=== PATIENT | male | born 1950 | race Caucasian/White ===

== ENCOUNTER 2021-06-18 09:47 | Outpatient (CLI) | payer MEDICARE, OTHER, SELFPAY ==
[2021-06-18 10:23] LABS: Alanine Aminotransferase 21 U/L (4-50); Albumin Level 4.7 g/dL (3.5-5.1); Alkaline Phosphatase 59 U/L (38-126); Anion Gap 11 mmol/L (8-16); Aspartate Amino Transferase 22 U/L (17-59); Bilirubin,Total 0.6 mg/dL (0.2-1.3); Blood Urea Nitrogen 23 mg/dL (9-20); Calcium 9.1 mg/dL (8.4-10.2); Carbon Dioxide 23 mmol/L (22-30); Chloride 104 mmol/L (98-107); Cholesterol 152 mg/dL (0-200); Estimated Glomerular Filt Rate > 60; Glucose 117 mg/dL (65-110); HDL Direct 33 mg/dL; Potassium 4.2 mmol/L (3.4-5.0); Sodium 138 mmol/L (137-145); Triglycerides 178 mg/dL (<150)
[2021-06-18 10:24] LABS: Hemoglobin A1C 6.4 % (<5.7)
[2021-06-18 10:34] LABS: LDL Cholesterol Direct 87 mg/dL
== END 2021-06-18 09:48 | disposition home or self-care (01) ==
LOC: ANHLAB 09:51
PROVIDERS: PCP Family Medicine; Visit Provider Physician Assistant
DX: Z12.5 Encounter for screening for malignant neoplasm of prostate (principal); E11.9 Type 2 diabetes mellitus without complications; I10 Essential (primary) hypertension; E78.5 Hyperlipidemia, unspecified; Z00.00 Encounter for general adult medical examination without abnormal findings
CPT/HCPCS: 36415; 80053; 80061; 83036; 84153; G0103

== ENCOUNTER 2021-11-05 15:00 | Outpatient (RCR) | payer MEDICARE, OTHER, SELFPAY ==
--- NOTE | 2021-09-23 11:51 | STOPEVAL ---
SPEECH AND LANGUAGE EVALUATION Thank you for referring Radhames Saleem to [facility].? The patient is scheduled to be seen for therapy? 2x/week for 4 weeks. Please review, sign, date and return this plan of care NINO. I agree with and certify that the following plan of care is medically necessary. Referring Physician Date Attending Provider: Zach Chaudhary, MSerina Therapy Assessment Status Assessment Status Assessment Status Evaluation Outpatient Past Medical History Past Medical History Source of Past Medical History Patient/ Neurological History Hx Cerebrovascular Accident (CVA) Yes: CVA 09/12/21 [facility]: 09/12-09/15/21 Cardiovascular History Hx Cardiac Disorders Hypertension Respiratory History Hx Respiratory Disorders No Significant History Gastrointestinal History Hx Gastrointestinal Disorders No Significant History Genitourinary History Hx Genitourinary Disorders No Significant History Musculoskeletal History Hx Musculoskeletal Disorders No Significant History Hematological History Hx Hematological Disorders No Significant History Endocrine History Hx Diabetes Yes: Possible but not confirmed Evaluation Information Problem Diagnosis CVA Onset 09/12/21 Subjective Information Patient reports that he woke Query Text:As Reported By Patient/ up later on Tuesday morning Family and was behaving normally until about 9:00 when he was unable to stand safely and fell. immediately called 911 and patient was taken to [facility]. reported that patient was evaluated by Speech Therapy at that time and was told to continue with ST after discharge. Pain Assessment Timing of Pain Assessment Timing of Pain Assessment Assessment Self Report Self Report Pain Level 0 Pain Score Pain Score 0: Self Report Language Evaluation Auditory Comprehension Body Part Identification (% Accuracy (0- 100 100)) Object Identification (% Accuracy (0-100 100 )) Picture Identification (% Accuracy (0- 100 100)) Simple Yes/No Questions (% Accuracy (0- 100 100)) Moderate Yes/No Questions (% Accuracy (0 100 -100)) Complex Yes/No Questions (% Accuracy (0- 100 100)) Auditory Comprehension One-Step 100 Directives (% Accuracy (0-100)) Auditory Comprehension of Two-Step 100 Directives (% Accuracy (0-100)) Auditory Comprehension of Three-Step 100
--- NOTE | 2021-10-19 14:01 | OTOPEVAL ---
OCCUPATIONAL THERAPY EVALUATION REPORT AND DISCHARGE SUMMARY 10/19/21 Patient referred to outpatient OT s/p CVA which occurred 09/12/21. At this time he is functioning independently, at his baseline, with ADLs and functional transfers. He has intact and symmetrical strength and coordination. No further skilled OT indicated at this time. Thank you for this referral. Thank you for referring Radhames Saleem to [facility].? Please review, sign, date and return this D/C Note NINO. I agree with and certify that the following plan of care is medically necessary. Referring Physician Date Referring Provider: Baldomero Cool MD *OT Outpatient Evaluation Start: 10/19/21 13:33 Therapy Assessment Status Assessment Status Assessment Status Evaluation Outpatient Past Medical History Past Medical History Source of Past Medical History Patient Neurological History Hx Cerebrovascular Accident (CVA) Yes: CVA 09/12/21 [facility] 09/12- Cardiovascular History Hx Cardiac Disorders No Significant History Respiratory History Hx Respiratory Disorders No Significant History Gastrointestinal History Hx Gastrointestinal Disorders No Significant History Genitourinary History Hx Genitourinary Disorders No Significant History Musculoskeletal History Hx Musculoskeletal Disorders No Significant History Hematological History Hx Hematological Disorders No Significant History Endocrine History Hx Diabetes Yes: Possible but not confirmed HEENT History Hx HEENT Disorders No Significant History Integumentary History Hx Skin Disorders No Significant History Reproductive History Hx Reproductive Disorders No Significant History Psychosocial History Hx Psychiatric Disorders No Significant History Pain History History of Any Previous or Ongoing No Significant History Instance of Pain Anesthesia History Hx Anesthesia Reactions No Significant History Evaluation Information 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 He Family reports that since returning home from the hospital he has been independent with ADLs and reports no physical deficits. He has been seeing speech therapy. Prior Level of Function Activity Level (Last 3 Months) Occupation Retired Hand Dominance Right Activity of Daily Living Ability Independent Indoor/Home Mobility Independent Community Mobility Independent Stairs Ability Independent Cooking No Cleaning No
--- NOTE | 2021-10-21 14:36 | STOPEVAL ---
Thank you for referring Radhames Saleem to [facility].? The patient is scheduled to continue 2x/weekly for 4 additional weeks. Please review, sign, date and return this plan of care NINO. I agree with and certify that the following plan of care is medically necessary. Referring Physician Date Attending Provider: Zach Chaudhary, Tre Therapy Assessment Status Assessment Status Assessment Status Evaluation Outpatient Past Medical History Past Medical History Source of Past Medical History Patient Neurological History Hx Cerebrovascular Accident (CVA) Yes: CVA 09/12/21 [facility] 09/12- Pain Assessment Timing of Pain Assessment Timing of Pain Assessment Pre-Treatment Self Report Self Report Pain Level 0 Pain Score Pain Score 0: Self Report Language Evaluation Auditory Comprehension Complex Yes/No Questions (% Accuracy (0- 100 100)) Auditory Comprehension of Complex 100 Directives (% Accuracy (0-100)) Auditory Comprehension of Moderate 75 Paragraphs (% Accuracy (0-100)) Response Latency Mild Deficits Factors Limiting Auditory Comprehension Aphasia,Decreased Attention, Memory Deficits Overall Auditory Comprehension Ability Mild Deficits Additional Auditory Comprehension Still caught by two complex Comments spatial yes/no questions: Is your neck above your chin? and Do we read from right to left? that caught him on the initial evaluation. These were addressed during several sessions however they still caught him today. Ability to catch details in moderate paragraph increased from 40% on initial evaluation to 75% on current evaluation. Will address this more frequently next month. Dysarthria Evaluation Oral-Motor Assessment Lip Structure Asymmetrical Lip Color [place] Lip Moisture Moist Lip Protrusion Direction WNL,Rate WNL,Range Reduced,Rate Slow,Strength Reduced Lip Lateralization Direction WNL,Rate WNL,Rate Slow,Strength Reduced Lip Compression Direction WNL,Range WNL,Rate WNL,Rate Slow,Strength Reduced Lip Tone Reduced Right Lip Comments Patient reports only occasional loss of food within
--- NOTE | 2021-11-06 16:20 | STOPEVAL ---
Thank you for referring Radhames Saleem to [facility].? The patient is discharged from direct Speech Therapy with all goals achieved. Referring Physician Date Attending Provider: Zach ChaudharyTre Therapy Assessment Status Assessment Status Assessment Status Discharge - Pt Not Present Outpatient Past Medical History Past Medical History Source of Past Medical History Patient Neurological History Hx Cerebrovascular Accident (CVA) Yes: CVA 09/12/21 ST Clinical Summary Clinical Summary ST Clinical Summary This patient was seen for a Speech Evaluation and 13 treatment sessions focusing on improving oral motor strength and speech intelligibility. Patient exhibited excellent participation by attending all scheduled sessions and completing exercises and intelligibility tasks at home daily in between sessions. By time of discharge, patient exhibited significant improvement in speech intelligibility at the word, phrase, and sentences levels with occasional imprecise speech sounds at the conversational level, often self-correcting independently. He was discharged with all goals achieved and no further direct Speech Therapy indicated.
== END 2021-12-07 13:07 | disposition home or self-care (01) ==
LOC: ANHST 15:00
PROVIDERS: PCP Family Medicine; Visit Provider Family Medicine
DX: I63.412 Cerebral infarction due to embolism of left middle cerebral artery (principal); I69.322 Dysarthria following cerebral infarction
CPT/HCPCS: 92507; 92523; 92610; 97165

== ENCOUNTER 2022-02-27 16:47 | Emergency (ER) | payer MEDICARE, OTHER, SELFPAY ==
--- NOTE | 2022-02-27 16:50 | ED.SKABFB ---
HPI - Skin/Abscess/Foreign Bdy General Chief complaint: Skin/Abscess/Foreign Body Stated complaint: CHEMICAL MCCLOUD TO BOTH FEET Time Seen by Provider: 02/27/22 17:02 Source: patient and RN notes reviewed Mode of arrival: ambulatory Limitations: no limitations History of Present Illness HPI narrative: 21-year-old male presents with concern for bilateral mccloud to both dorsal feet. Reports today while filling his [employer] gas tank he spilled gasoline on his shoes and socks,, and then cut the grass. Reports when he finished and took off his shoes and socks he noticed a burning sensation, redness to the top of both feet. Reports he washed the skin, applied some Silvadene that he had leftover at home. He denies decreased range of motion, strength, sensation in the feet or digits MD complaint: other (burn) Related Data Home Medications Medication Instructions Recorded Confirmed apixaban 5 mg tablet (Eliquis) 5 mg PO BID 02/27/22 02/27/22 atorvastatin 40 mg tablet 40 mg PO DAILY 02/27/22 02/27/22 finasteride 5 mg tablet 5 mg PO DAILY 02/27/22 02/27/22 lisinopril 20 1 tablet PO DAILY 02/27/22 02/27/22 mg-hydrochlorothiazide 12.5 mg tablet metoprolol succinate 25 mg 25 mg PO DAILY 02/27/22 02/27/22 tablet,extended release 24 hr tamsulosin 0.4 mg capsule 0.4 mg PO DAILY 02/27/22 02/27/22 Allergies Allergy/AdvReac Type Severity Reaction Status Date / Time No Known Allergies Allergy Verified 02/27/22 16:56 Review of Systems Review of Systems: CONSTITUTIONAL: Denies malaise, chills, sweats, or fever. CARDIOVASCULAR: Denies chest pain, palpitations, or edema. RESPIRATORY: Denies cough or dyspnea. GASTROINTESTINAL: Denies abdominal pain, nausea, vomiting SKIN: Reports redness, mccloud to the top of both feet MUSCULOSKELETAL: Denies joint pain or myalgia. NEUROLOGIC: Denies headache. All systems reviewed & are unremarkable except as noted in HPI and below PMFSH Past Medical History Medical History Anxiety Benign hypertension Decreased breath sounds in middle field on right side of chest (~10/24/18) DJD (degenerative joint disease), multiple sites DVT prophylaxis Dyslipidemia History of kidney stones Hypercholesterolemia Hypertension Impacted cerumen of both ears Internal hemorrhoids noted in colonoscopy report 05/2017 Lower urinary tract symptoms (LUTS) Nephrolithiasis Pelvic fracture (~1955) Pre-diabetes Surgical History Surgical History History of total right hip replacement (~08/16/17) MD Aimee Hx of colonoscopy (~03/17/12) MD Ritu Family History Family History Father Carcinoma of colon Other Cerebrovascular accident Congestive heart failure Diabetes mellitus Hypertension Social History Social History (Updated 06/08/21 @ 14:02 by Cortney Tolbert [facility]) Smoking status: Never smoker Second hand tobacco smoke exposure: No Smoking end date: 08/01/02 Alcohol intake: current Substance use: never Substance use type: does not use Comments At time of signature, agree with nursing past medical, surgical, social and family history. There is no relevant family history pertinent to the presenting complaint Exam Narrative: GENERAL: Well-appearing, well-nourished, and in no acute distress. HEAD: Normocephalic, atraumatic. EYES: PERRLA, conjunctivae clear ENT: Mucous membranes moist. NECK: Supple. No lymphadenopathy CHEST: Clear to auscultation. No respiratory distress. HEART: Regular rate and rhythm. SKIN: Warm, dry. Dorsal feet, not including ankles or digits, bilaterally erythematous, with scattered small fluid-filled bulla, each less than 0.5 cm in diameter, less than 3 on each foot, NEURO: Alert and oriented x3. PSYCH: Normal mood and affect Course Course Emergency Course: Patient is aware
[2022-02-27 16:59] VITALS: BP 129/81; PULSE 54; RESP 16; TEMP 37.1; O2SAT 98
[2022-02-27] MEDS: SILVER SULFADIAZINE 1% CR 50 GM JAR (*BKC) 1 APPLIC TOPICAL (17:16)
== END 2022-02-27 17:29 | disposition home or self-care (01) ==
PROVIDERS: Emergency Provider Nurse Practitioner; PCP Family Medicine
DX: T25.622A Corrosion of second degree of left foot, initial encounter (principal); T25.621A Corrosion of second degree of right foot, initial encounter; T52.0X1A Toxic effect of petroleum products, accidental (unintentional), initial encounter; I10 Essential (primary) hypertension; E78.5 Hyperlipidemia, unspecified; E78.00 Pure hypercholesterolemia, unspecified; R73.03 Prediabetes; Z96.641 Presence of right artificial hip joint
CPT/HCPCS: 99213; A9270; G0463

== ENCOUNTER 2022-06-25 11:37 | Emergency (ER) | payer MEDICARE, OTHER, SELFPAY ==
--- NOTE | ~2022-06-25 | CT_ITS ---
EXAMINATION: CT soft tissue neck w con DATE: 06/25/2022 15:37 INDICATION: Neck swelling. Dysphagia. TECHNIQUE: Computed tomography (CT) of the neck was performed with 75 mL Omnipaque-350 intravenous co ntrast. Automated exposure control and iterative reconstruction technique were employed. The dose-kailash gth product was 666.21 mGy-cm. COMPARISON: None FINDINGS: Orbits are normal. The paranasal sinuses are clear. Visualized sinuses and mastoid aircells are well aerated. Submandibular and parotid glands are symmetric. Thyroid gland is unremarkable. The palatine tonsils are normal. Small calcifications within the otherwise normal lingual tonsils. There is thicke arelis of the epiglottis as well as the bilateral aryepiglottic folds, more prominent on the left. The airway remains patent. No subglottic narrowing. There is no retropharyngeal soft tissue swelling. Mil d bilateral likely reactive level 2 jugular chain lymphadenopathy with lymph nodes measuring up to 12 mm maximal short axis diameter on the right and 11 mm on the left. No masses or abnormal fluid colle ctions identified. Animal atherosclerotic plaque at the bilateral carotid bulbs with 0% stenosis by N ASCET criteria.. Superior mediastinum is unremarkable. Atherosclerotic coronary artery calcific locat ion. Thoracic aorta is normal in caliber with no dissection. The visualized portions of the upper lydia gs are clear. IMPRESSION: 1. Epiglottitis without significant airway narrowing. Dr. Dalton discussed these findings with Dr. Emilia Hyatt at 3:52 PM. Reviewed, dictated and finalized at location A. DREN'S AIDE IMPRESSION: 1. Epiglottitis without significant airway narrowing. Dr. Dalton discussed th fior findings with Dr. Emilia Hyatt at 3:52 PM.
--- NOTE | ~2022-06-25 | XR_ITS ---
EXAMINATION: XR chest 2V DATE: 06/25/2022 15:47 INDICATION: Shortness of breath and 3 days of cough TECHNIQUE: frontal and lateral views of the chest were obtained. COMPARISON: Chest radiograph dated 10/24/2018 FINDINGS: The lungs remain clear with no focal airspace opacities, pulmonary edema, pleural effusion or pneumot horax. The cardiomediastinal silhouette is normal. Mild thoracic kyphosis with mild to moderate spond ylosis. Chronic mild anterior wedging of a couple mid thoracic vertebral bodies. IMPRESSION: 1. No acute cardiopulmonary disease. Reviewed, dictated and finalized at location A. ET PRINTER
[2022-06-25 12:02] VITALS: BP 171/88; PULSE 72; RESP 16; TEMP 37.4; O2SAT 97
--- NOTE | 2022-06-25 13:30 | ED.GENADULT ---
HPI - General Adult General Chief complaint: Unspecified Stated complaint: chest congestion, sore throat, afib? Time Seen by Provider: 06/25/22 13:18 History of Present Illness HPI narrative: Patient is a 72-year-old male with a history of hypertension, hyperlipidemia, A. fib on Eliquis presenting with sore throat and difficulty swallowing. Patient states that for the last 2 days he has had a very sore throat and feels like his neck is swollen. States that he has had difficulty swallowing. He is unsure if its due to pain or if it feels like there is a blockage. His states that he was choking on green beans earlier today. Patient also complains of a cough and chest congestion. Denies fevers, headache, shortness of breath, difficulty breathing, chest pain, palpitations, numbness or weakness, abdominal pain, nausea or vomiting, diarrhea, leg swelling, dysuria. Related Data Home Medications Medication Instructions Recorded Confirmed apixaban 5 mg tablet (Eliquis) 5 mg PO BID 02/27/22 02/27/22 atorvastatin 40 mg tablet 40 mg PO DAILY 02/27/22 02/27/22 finasteride 5 mg tablet 5 mg PO DAILY 02/27/22 02/27/22 lisinopril 20 1 tablet PO DAILY 02/27/22 02/27/22 mg-hydrochlorothiazide 12.5 mg tablet metoprolol succinate 25 mg 25 mg PO DAILY 02/27/22 02/27/22 tablet,extended release 24 hr tamsulosin 0.4 mg capsule 0.4 mg PO DAILY 02/27/22 02/27/22 Allergies Allergy/AdvReac Type Severity Reaction Status Date / Time No Known Allergies Allergy Verified 06/25/22 12:06 Review of Systems Review of Systems: All systems reviewed & are unremarkable except as noted in HPI and below PMFSH Past Medical History Medical History Anxiety Benign hypertension Decreased breath sounds in middle field on right side of chest (~10/24/18) DJD (degenerative joint disease), multiple sites DVT prophylaxis Dyslipidemia History of kidney stones Hypercholesterolemia Hypertension Impacted cerumen of both ears Internal hemorrhoids noted in colonoscopy report 05/2017 Lower urinary tract symptoms (LUTS) Nephrolithiasis Pelvic fracture (~195) Pre-diabetes Surgical History Surgical History History of total right hip replacement (~08/16/17) MD Aimee Hx of colonoscopy (~03/17/12) MD Ritu Family History Family History Father Carcinoma of colon Other Cerebrovascular accident Congestive heart failure Diabetes mellitus Hypertension Social History Social History Smoking status: Never smoker Second hand tobacco smoke exposure: No Smoking end date: 08/01/02 Alcohol intake: current Substance use: never Substance use type: does not use Exam Narrative: GENERAL: Well-appearing, well-nourished, and in no acute distress. HEAD: Normocephalic, atraumatic. EYES: PERRLA and EOMI. ENT: Nares clear, no rhinorrhea or epistaxis. Mucous membranes moist. Difficult to fully visualize posterior pharynx, no obvious erythema or exudates NECK: Supple. Patient appears to have some swelling in the submandibular region, nontender, patient handling his secretions CHEST: Clear to auscultation. No respiratory distress. HEART: Regular rate and rhythm. No murmur heard. Normal peripheral pulses. ABDOMEN: Soft, nontender, nondistended, normal active bowel sounds. EXTREMITIES: Normal range of motion. No edema. SKIN: Warm, dry, no rash. NEURO: No focal deficits. Alert and oriented x3. PSYCH: Normal mood and affect. Course Vital Signs Vital signs: Vital Signs Temperature 99.4 F 06/25/22 12:02 Pulse Rate 72 06/25/22 12:02 Respiratory Rate 16 06/25/22 12:02 Blood Pressure 171/88 H 06/25/22 12:02 Pulse Oximetry 97 06/25/22 12:02 Temperature 99.4 F 06/25/22 12:02 Pulse Rate 67 06/25
[2022-06-25 14:14] LABS: Basophils Percent Auto 0.2 % (0.2-1.2); Eosinophils Absolute Auto 0.1 K/mm3 (0-0.3); Eosinophils Percent Auto 0.7 % (0-4.4); Hematocrit 46.3 % (42.0-52.0); Hemoglobin 15.6 g/dL (14.0-18.0); Immature Granulocyte Absolute 0.06 K/mm3 (0.00-0.031); Immature Granulocyte Percent A 0.4 % (0-0.5); Lymphocytes Absolute Auto 1.57 K/mm3 (0.9-3.2); Lymphocytes Percent Auto 11.4 % (18.3-44.2); Mean Corpuscular HGB Conc 33.7 g/dl (32-36); Mean Corpuscular Hemoglobin 29.9 pg (26-34); Mean Corpuscular Volume 88.7 fl (80-100); Mean Platelet Volume 10.5 fl (7.4-10.4); Monocytes Absolute Auto 1.6 K/mm3 (0.1-0.6); Monocytes Percent Auto 11.7 % (2.6-8.5); Neutrophils Absolute Auto 10.4 K/mm3 (1.3-6.7); Neutrophils Percent Auto 75.6 % (45.5-73.1); Platelet Count Result 215 k/mm3 (150-375); Red Blood Count 5.22 M/mm3 (4.6-6.20); Red Cell Distribution Width 12.8 % (11.5-14.5); White Blood Count 13.8 K/mm3 (4.5-10.0)
[2022-06-25] MEDS: SODIUM CHLORIDE 0.9% IV 1,000 ML 999 ML IV CONT (14:43)
[2022-06-25] MEDS: KETOROLAC 15 MG/ML VIAL (*BKC) IV PUSH (14:44)
[2022-06-25 14:47] LABS: Influenza A QL RT-PCR Negative (Negative); Influenza B QL RT-PCR Negative (Negative); RSV RNA, RT-PCR Negative (Negative); SARS-CoV-2 RNA PCR Negative
[2022-06-25 14:54] LABS: Strep Group A RT-PCR Not Detected (Negative)
[2022-06-25 15:25] LABS: Alanine Aminotransferase 24 U/L (6-50); Albumin Level 4.6 g/dL (3.5-5.1); Alkaline Phosphatase 88 U/L (38-126); Anion Gap 12 mmol/L (8-16); Aspartate Amino Transferase 21 U/L (17-59); Bilirubin,Total 1.1 mg/dL (0.2-1.3); Blood Urea Nitrogen 12 mg/dL (9-20); Calcium 9.1 mg/dL (8.4-10.2); Carbon Dioxide 20 mmol/L (22-30); Chloride 104 mmol/L (98-107); Estimated CRCL calculation 113 ml/min; Estimated Glomerular Filt Rate > 60; Glucose 155 mg/dL (65-110); Potassium 4.2 mmol/L (3.4-5.0); Sodium 136 mmol/L (137-145)
[2022-06-25 15:32] LABS: Estimated CRCL calculation 98 ml/min; Estimated Glomerular Filt Rate > 60
[2022-06-25 17:00] VITALS: BP 142/79; PULSE 68; RESP 16; O2SAT 95
[2022-06-25] MEDS: cefTRIAXone 2 GM in SODIUM CHLORIDE 0.9% IV 100 ML 200 ML IVPB (17:03)
[2022-06-25 18:00] VITALS: BP 151/97; PULSE 67; RESP 17; O2SAT 94
[2022-06-25 19:05] VITALS: BP 132/80; PULSE 66; RESP 14; O2SAT 93
[2022-06-25 20:13] VITALS: BP 136/89; PULSE 66; O2SAT 92
[2022-06-25 21:53] VITALS: BP 132/87; PULSE 67; O2SAT 94
--- NOTE | 2022-06-25 21:53 | PC.NURSE ---
[facility] here to transport patient to [facility]. Patient transferred with his chart and belongings.
== END 2022-06-25 21:54 | disposition short-term general hospital (02) ==
PROVIDERS: Emergency Provider Emergency Medicine; PCP Family Medicine
DX: J05.10 Acute epiglottitis without obstruction (principal); Z20.822 Contact with and (suspected) exposure to COVID-19; I48.91 Unspecified atrial fibrillation; I10 Essential (primary) hypertension; E78.5 Hyperlipidemia, unspecified; R73.03 Prediabetes; Z87.442 Personal history of urinary calculi; Z96.641 Presence of right artificial hip joint; Z87.891 Personal history of nicotine dependence; Z79.01 Long term (current) use of anticoagulants
CPT/HCPCS: 36415; 70491; 71046; 80053; 85025; 87637; 87651; 96361; 96365; 96375; 99285; J0696; J1100; J1885; J7030; Q9967

== ENCOUNTER 2022-09-15 08:01 | Emergency (ER) | payer MEDICARE, OTHER, SELFPAY ==
--- NOTE | 2022-09-15 08:12 | ED.URI ---
HPI - URI/Sore Throat General Chief Complaint: Upper Respiratory Infection Stated Complaint: sore throat, fever,high bp, difficulty swallowing Time Seen by Provider: 09/15/22 08:12 Source: patient, family, RN notes reviewed and old records reviewed Mode of arrival: ambulatory Limitations: no limitations History of Present Illness HPI Narrative: 72-year-old gentleman accompanied by [facility] to [facility] with complaints of sore throat, difficulty swallowing, lymph nod swelling in neck since Tuesday with symptoms progressing. Patient reports painful swallowing denies any difficulty with his breathing with respirations even and nonlabored with no tachypnea and SAO2 98% on room air. Patient had stroke in September of 2021 with some residual right sided weakness but has full mobility of right side with gait slow and steady. Patient and report incidence of epiglottis in June of 2022 with treatment at [facility] of steroids and antibiotics after being transferred from [place] [facility] ED. Patient displays no trismus, is able to control oral secretions, reports that he has been febrile with temperature up to 102F yesterday. Patient has been taking Tylenol and also some Mucinex DM. MD elicited complaint: sore throat Pertinent past history: other (afib, CVA) Onset (ago): day(s) (3) Pain scale (0-10): 4 Treatments prior to arrival: acetaminophen and other (Mucinex DM) Related Data Home Medications Medication Instructions Recorded Confirmed apixaban 5 mg tablet (Eliquis) 5 mg PO BID 02/27/22 09/15/22 atorvastatin 40 mg tablet 40 mg PO DAILY 02/27/22 09/15/22 finasteride 5 mg tablet 5 mg PO DAILY 02/27/22 09/15/22 lisinopril 20 1 tablet PO DAILY 02/27/22 09/15/22 mg-hydrochlorothiazide 12.5 mg tablet metoprolol succinate 25 mg 25 mg PO DAILY 02/27/22 09/15/22 tablet,extended release 24 hr tamsulosin 0.4 mg capsule 0.4 mg PO DAILY 02/27/22 09/15/22 ketoconazole 2 % topical cream 1 applic topical DIRECTED 09/15/22 09/15/22 oxybutynin chloride 5 mg 5 mg PO DAILY 09/15/22 09/15/22 tablet,extended release 24 hr Allergies Allergy/AdvReac Type Severity Reaction Status Date / Time No Known Allergies Allergy Verified 09/15/22 08:06 Review of Systems Review of Systems: CONSTITUTIONAL: reports fever, chills, or sweats. EYES: Denies visual changes, redness, or discharge. ENT: Positive rhinorrhea, congestion, sore throat, no otalgia. CARDIOVASCULAR: Denies chest pain, palpitations, or edema. RESPIRATORY: Denies cough or dyspnea. GASTROINTESTINAL: Denies abdominal pain, nausea, vomiting, or diarrhea. GENITOURINARY: Denies dysuria or hematuria. SKIN: Denies rash or itching. MUSCULOSKELETAL: Denies back pain, joint pain, or myalgia. NEUROLOGIC: Denies headache, numbness, or weakness. PSYCHIATRIC: Denies anxiety or depression. All systems reviewed & are unremarkable except as noted in HPI and below PMFSH Past Medical History Medical History (Updated 09/16/22 @ 07:48 by Pam Avila NP) Anxiety Benign hypertension CVA (cerebral vascular accident) Decreased breath sounds in middle field on right side of chest (~10/24/18) DJD (degenerative joint disease), multiple sites DVT prophylaxis Dyslipidemia History of kidney stones Hypercholesterolemia Hypertension Impacted cerumen of both ears Internal hemorrhoids noted in colonoscopy report 05/2017 Lower urinary tract symptoms (LUTS) Nephrolithiasis Pelvic fracture (~1955) Pre-diabetes Surgical History Surgical History History of total right hip replacement (~08/16/17) MD Aimee Hx of colonoscopy (~03/17/12) MD Ritu Family History Family History Father Carcinoma of colon Other Cerebrovascular accident Congestive heart failure Diabetes mellitus Hypertension Social History Social History (Reviewed 09/15/22 @ 08:14 by Pam Avila
[2022-09-15 08:21] VITALS: BP 154/89; PULSE 76; RESP 16; TEMP 37.2; O2SAT 98
== END 2022-09-15 08:45 | disposition home or self-care (01) ==
PROVIDERS: Emergency Provider Registered Nurse; PCP Family Medicine
DX: J02.0 Streptococcal pharyngitis (principal); K12.2 Cellulitis and abscess of mouth; Z20.822 Contact with and (suspected) exposure to COVID-19; Z87.891 Personal history of nicotine dependence; I10 Essential (primary) hypertension; E78.5 Hyperlipidemia, unspecified; E78.00 Pure hypercholesterolemia, unspecified; R73.03 Prediabetes; M15.9 Polyosteoarthritis, unspecified; Z86.73 Personal history of transient ischemic attack (TIA), and cerebral infarction without residual deficits; Z96.641 Presence of right artificial hip joint
CPT/HCPCS: 87426; 87804; 87880; 99213; C9803; G0463